=== PATIENT | male | born 1970 | race American Indian/Alaskan Native ===

== ENCOUNTER 2016-12-22 20:33 | Inpatient (IN) | payer MEDICARE ==
[2016-12-22] MEDS ORDERED: DULCOLAX PR PRN (20:44)
[2016-12-22] MEDS ORDERED: SENOKOT PO PRN (20:44)
[2016-12-22] MEDS: PERCOCET 5/325 PO PRN (21:43)
[2016-12-22] MEDS: COLACE PO SCH (21:45)
[2016-12-22] MEDS: LOVENOX SUB-Q SCH (21:45)
[2016-12-22] MEDS: REMERON PO SCH (22:29)
[2016-12-22] MEDS: SYMMETREL PO SCH (22:29)
[2016-12-22] MEDS: HABITROL TD SCH (22:31)
[2016-12-23 06:48] LABS: Basophils % (Auto) 0.7 % (0.0-1.8); Eosinophils % (Auto) 3.1 % (0.0-4.3); Hematocrit 36.3 % (35.5-45.6); Hemoglobin 12.2 gm/dl (11.8-15.2); Mean Corpuscular HGB Conc 34 % (32-34); Mean Corpuscular Hemoglobin 29 pg (28-32); Mean Corpuscular Volume 87 fl (84-94); Platelet Count 300 K/mm3 (140-440); Red Blood Count 4.18 M/mm3 (3.65-5.03); Red Cell Distribution Width 14.2 % (13.2-15.2); White Blood Count 8.5 K/mm3 (4.5-11.0)
[2016-12-23 07:00] LABS: Alanine Aminotransferase 91 units/L (7-56); Albumin 3.4 g/dL (3.9-5); Albumin/Globulin Ratio 0.8 %; Alkaline Phosphatase 147 units/L (35-129); Anion Gap 20 mmol/L; BUN/Creatinine Ratio 12.22; Blood Urea Nitrogen 11 mg/dL (9-20); Calcium 10.2 mg/dL (8.4-10.2); Carbon Dioxide 26 mmol/L (22-30); Chloride 94.6 mmol/L (98-107); Glucose 102 mg/dL (75-100); Potassium 4.5 mmol/L (3.6-5.0); Sodium 136 mmol/L (137-145); Total Protein 7.9 g/dL (6.3-8.2)
[2016-12-23] MEDS: MAGIC MOUTHWASH PO SCH ×3 (09:45→22:21)
[2016-12-23] MEDS: PROzac PO SCH (09:46)
[2016-12-23] MEDS: SYMMETREL PO SCH ×2 (09:46→22:22)
[2016-12-23] MEDS: COLACE PO SCH (09:53)
[2016-12-23] MEDS ORDERED: COLACE PO PRN (11:00)
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
[2016-12-23] MEDS: PERCOCET 5/325 PO PRN (15:25)
[2016-12-23] MEDS: LOVENOX SUB-Q SCH ×2 (17:10→22:23)
[2016-12-23] MEDS: REMERON PO SCH (22:22)
[2016-12-23] MEDS: HABITROL TD SCH (22:23)
[2016-12-24] MEDS: PERCOCET 5/325 PO PRN ×2 (04:01→10:05)
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
[2016-12-24] MEDS: SYMMETREL PO SCH ×2 (10:00→21:09)
[2016-12-24] MEDS: PROzac PO SCH (10:00)
[2016-12-24] MEDS: LOVENOX SUB-Q SCH ×2 (10:11→21:15)
[2016-12-24] MEDS: MAGIC MOUTHWASH PO SCH ×3 (14:27→20:00)
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
[2016-12-24] MEDS: ATIVAN PO PRN (21:08)
[2016-12-24] MEDS: TYLENOL PO PRN (21:09)
[2016-12-24] MEDS: REMERON PO SCH (21:09)
[2016-12-24] MEDS: HABITROL TD SCH (21:13)
[2016-12-24] MEDS: ALUM-MAG HYDROX-SIMETH 200-200-20MG/5ML PO PRN (23:52)
[2016-12-25] MEDS: TYLENOL PO PRN (05:15)
--- NOTE | 2016-12-25 08:54 | XRay Report ---
LUMBOSACRAL SPINE, 5 VIEWS History: Lower back pain. Findings: Limited exam. There is residual oral contrast in the colon which limits the lateral views. There is grossly normal height and alignment of lumbar vertebra. No compression deformity or subluxation is appreciated. No significant degenerative changes are appreciated. The oblique images demonstrate wide patency of the neural foramen bilaterally. No pars defect is identified. The sacrum and SI joints are unremarkable. Impression: Slightly limited views of the lumbar spine. No abnormality is detected.
[2016-12-25] MEDS: SYMMETREL PO SCH ×2 (09:22→21:40)
[2016-12-25] MEDS: MAGIC MOUTHWASH PO SCH ×3 (09:25→21:40)
[2016-12-25] MEDS: PROzac PO SCH (09:26)
[2016-12-25 11:28] LABS: Hematocrit 35.3 % (35.5-45.6); Hemoglobin 11.8 gm/dl (11.8-15.2); Mean Corpuscular HGB Conc 33 % (32-34); Mean Corpuscular Hemoglobin 29 pg (28-32); Mean Corpuscular Volume 88 fl (84-94); Platelet Count 288 K/mm3 (140-440); Red Blood Count 4.03 M/mm3 (3.65-5.03); Red Cell Distribution Width 13.7 % (13.2-15.2); White Blood Count 13.6 K/mm3 (4.5-11.0)
[2016-12-25 11:39] LABS: Anion Gap 22 mmol/L; Blood Urea Nitrogen 11 mg/dL (9-20); Carbon Dioxide 25 mmol/L (22-30); Chloride 90.9 mmol/L (98-107); Glucose 103 mg/dL (75-100); Potassium 4.4 mmol/L (3.6-5.0); Sodium 133 mmol/L (137-145)
[2016-12-25] MEDS: LOVENOX SUB-Q SCH ×2 (11:55→21:40)
[2016-12-25] MEDS: ATIVAN PO PRN ×2 (11:56→21:39)
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
[2016-12-25] MEDS ORDERED: VANCOMYCIN VIAL 1,750 MG in NACL 0.9% 500 ML 500 ML IV ONE (14:34)
[2016-12-25] MEDS ORDERED: NACL 0.9% 1000 ML IV ONE ×2 (14:34→19:00)
[2016-12-25] MEDS ORDERED: VANCOMYCIN PHARMACY TO DOSE IV SCH (15:00)
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
[2016-12-25] MEDS: VANCOMYCIN 1,500 MG in NACL 0.9% 500 ML 500 ML IV SCH (17:03)
[2016-12-25] MEDS: ULTRAM PO PRN (17:30)
[2016-12-25] MEDS: ALUM-MAG HYDROX-SIMETH 200-200-20MG/5ML PO PRN (17:30)
[2016-12-25] MEDS: PERCOCET 5/325 PO PRN (18:48)
[2016-12-25] MEDS: ZOSYN/NS 4.5GM/100ML 4.5 GM/100 ML VIAL IV SCH ×2 (18:53→23:08)
[2016-12-25] MEDS: LEVAQUIN 750MG/150ML 750 MG/150 ML BAG IV SCH (19:59)
[2016-12-25] MEDS: REMERON PO SCH (21:39)
[2016-12-25] MEDS: HABITROL TD SCH (21:41)
[2016-12-26] MEDS: VANCOMYCIN 1,500 MG in NACL 0.9% 500 ML 500 ML IV SCH ×2 (05:38→16:41)
[2016-12-26] MEDS: ZOSYN/NS 4.5GM/100ML 4.5 GM/100 ML VIAL IV SCH ×3 (07:00→18:58)
[2016-12-26 08:17] LABS: Basophils % (Auto) 0.3 % (0.0-1.8); Eosinophils % (Auto) 0.2 % (0.0-4.3); Hematocrit 31.3 % (35.5-45.6); Hemoglobin 10.5 gm/dl (11.8-15.2); Mean Corpuscular HGB Conc 34 % (32-34); Mean Corpuscular Hemoglobin 29 pg (28-32); Mean Corpuscular Volume 87 fl (84-94); Platelet Count 247 K/mm3 (140-440); Red Blood Count 3.59 M/mm3 (3.65-5.03); Red Cell Distribution Width 13.9 % (13.2-15.2); White Blood Count 14.4 K/mm3 (4.5-11.0)
[2016-12-26] MEDS: PROTONIX IV SCH (08:49)
[2016-12-26] MEDS: PROzac PO SCH (08:51)
[2016-12-26] MEDS: SYMMETREL PO SCH ×2 (08:52→21:47)
[2016-12-26] MEDS: MAGIC MOUTHWASH PO SCH ×2 (08:53→13:54)
[2016-12-26] MEDS: LOVENOX SUB-Q SCH (09:03)
[2016-12-26] MEDS ORDERED: LEVAQUIN 750MG/150ML 750 MG/150 ML BAG IV SCH ×2 (10:00)
[2016-12-26] MEDS: LEVAQUIN 750MG/150ML 750 MG/150 ML BAG IV SCH (10:15)
[2016-12-26] MEDS: ATIVAN PO PRN (11:04)
[2016-12-26] MEDS ORDERED: NACL 0.9% 1000 ML 1,000 ML IV SCH (16:00)
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
[2016-12-26] MEDS: PERCOCET 5/325 PO PRN (16:48)
[2016-12-26] MEDS: REMERON PO SCH (21:46)
[2016-12-27] MEDS ORDERED: NACL 0.9% 500 ML 500 ML IV SCH (04:00)
[2016-12-27] MEDS: HABITROL TD SCH (06:18)
[2016-12-27] MEDS: VANCOMYCIN 1,500 MG in NACL 0.9% 500 ML 500 ML IV SCH ×2 (06:19→16:42)
[2016-12-27] MEDS: SYMMETREL PO SCH ×2 (09:15→22:44)
[2016-12-27] MEDS: PROTONIX IV SCH (09:16)
[2016-12-27] MEDS: PROzac PO SCH (09:16)
[2016-12-27] MEDS: MAGIC MOUTHWASH PO SCH ×2 (09:29→13:04)
[2016-12-27] MEDS: LOVENOX SUB-Q SCH ×2 (09:30→22:00)
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
[2016-12-27] MEDS: LEVAQUIN 750MG/150ML 750 MG/150 ML BAG IV SCH (11:16)
[2016-12-27] MEDS: ZOSYN/NS 4.5GM/100ML 4.5 GM/100 ML VIAL IV SCH ×2 (13:05→18:26)
[2016-12-27] MEDS: ALUM-MAG HYDROX-SIMETH 200-200-20MG/5ML PO PRN (17:14)
[2016-12-27] MEDS: PERCOCET 5/325 PO PRN (17:14)
[2016-12-27] MEDS: REMERON PO SCH (22:44)
[2016-12-28] MEDS: ZOSYN/NS 4.5GM/100ML 4.5 GM/100 ML VIAL IV SCH ×6 (01:16→17:49)
[2016-12-28 05:05] LABS: Anion Gap 18 mmol/L; Blood Urea Nitrogen 7 mg/dL (9-20); Calcium 9.2 mg/dL (8.4-10.2); Carbon Dioxide 24 mmol/L (22-30); Chloride 100.3 mmol/L (98-107); Glucose 100 mg/dL (75-100); Potassium 3.6 mmol/L (3.6-5.0); Sodium 139 mmol/L (137-145)
[2016-12-28 05:06] LABS: Hematocrit 27.1 % (35.5-45.6); Hemoglobin 9.4 gm/dl (11.8-15.2); Mean Corpuscular HGB Conc 35 % (32-34); Mean Corpuscular Hemoglobin 30 pg (28-32); Mean Corpuscular Volume 88 fl (84-94); Platelet Count 230 K/mm3 (140-440); Red Cell Distribution Width 14.1 % (13.2-15.2); White Blood Count 6.4 K/mm3 (4.5-11.0)
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
[2016-12-28] MEDS: PROTONIX PO SCH (08:23)
[2016-12-28] MEDS: SYMMETREL PO SCH ×2 (08:23→22:07)
[2016-12-28] MEDS: PROzac PO SCH (08:23)
[2016-12-28] MEDS: MAGIC MOUTHWASH PO SCH ×4 (09:37→20:31)
[2016-12-28] MEDS: LEVAQUIN PO SCH (10:46)
[2016-12-28] MEDS: LOVENOX SUB-Q SCH ×2 (14:37→22:06)
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
[2016-12-28] MEDS: REMERON PO SCH (21:49)
[2016-12-28] MEDS: HABITROL TD SCH (22:09)
[2016-12-28] MEDS: ROBITUSSIN PO PRN (22:27)
[2016-12-29] MEDS: ZOSYN/NS 4.5GM/100ML 4.5 GM/100 ML VIAL IV SCH ×2 (00:35→06:13)
[2016-12-29] MEDS: PERCOCET 5/325 PO PRN (00:50)
[2016-12-29] MEDS: ATIVAN PO PRN (00:51)
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
[2016-12-29] MEDS: PROzac PO SCH (08:01)
[2016-12-29] MEDS: SYMMETREL PO SCH ×2 (08:01→21:41)
[2016-12-29] MEDS: MAGIC MOUTHWASH PO SCH ×3 (08:02→20:36)
[2016-12-29 08:53] LABS: Hematocrit 32.3 % (35.5-45.6); Hemoglobin 10.6 gm/dl (11.8-15.2); Mean Corpuscular HGB Conc 33 % (32-34); Mean Corpuscular Hemoglobin 29 pg (28-32); Mean Corpuscular Volume 88 fl (84-94); Platelet Count 271 K/mm3 (140-440); Red Blood Count 3.66 M/mm3 (3.65-5.03); Red Cell Distribution Width 14.1 % (13.2-15.2); White Blood Count 5.4 K/mm3 (4.5-11.0)
[2016-12-29 09:08] LABS: Anion Gap 15 mmol/L; BUN/Creatinine Ratio 7.77; Blood Urea Nitrogen 7 mg/dL (9-20); Calcium 9.4 mg/dL (8.4-10.2); Carbon Dioxide 29 mmol/L (22-30); Chloride 98.5 mmol/L (98-107); Glucose 100 mg/dL (75-100); Potassium 3.4 mmol/L (3.6-5.0); Sodium 139 mmol/L (137-145)
[2016-12-29] MEDS: PROTONIX PO SCH (09:25)
[2016-12-29] MEDS: LOVENOX SUB-Q SCH ×2 (09:25→21:38)
[2016-12-29] MEDS ORDERED: K-DUR PO ONE (10:00)
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
[2016-12-29] MEDS: LEVAQUIN PO SCH (11:31)
--- NOTE | 2016-12-29 16:22 | Fluoroscopy Report ---
MODIFIED BARIUM SWALLOW INDICATION: Pneumonia. COMPARISON: None similar. FINDINGS: Fluoroscopy provided by radiologist for speech therapist to assess the swallowing mechanism. Food items of various consistencies given. No aspiration noted. Mild cervical spine degenerative changes and posterior postsurgical changes. IMPRESSION: Successful modified barium swallow. Please refer to detailed report from speech pathologist. Thank you for the opportunity to participate in this patient's care.
[2016-12-29] MEDS: REMERON PO SCH (21:41)
[2016-12-29] MEDS: HABITROL TD SCH (21:41)
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
[2016-12-30] MEDS: PROTONIX PO SCH (09:08)
[2016-12-30] MEDS: LEVAQUIN PO SCH (09:08)
[2016-12-30] MEDS: SYMMETREL PO SCH ×2 (09:09→22:43)
[2016-12-30] MEDS: PROzac PO SCH (09:09)
[2016-12-30] MEDS: LOVENOX SUB-Q SCH ×3 (09:14→22:46)
[2016-12-30] MEDS: MAGIC MOUTHWASH PO SCH ×4 (09:14→23:17)
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
[2016-12-30] MEDS: ULTRAM PO PRN (13:44)
[2016-12-30] MEDS: ROBITUSSIN PO PRN (13:44)
[2016-12-30] MEDS: REMERON PO SCH (22:43)
[2016-12-30] MEDS: COLACE PO SCH (23:18)
[2016-12-30] MEDS: HABITROL TD SCH (23:20)
[2016-12-31] MEDS: HABITROL TD SCH ×2 (05:11→22:03)
[2016-12-31] MEDS: COLACE PO SCH ×2 (08:00→22:09)
[2016-12-31] MEDS: SYMMETREL PO SCH ×2 (09:21→22:02)
[2016-12-31] MEDS: PROTONIX PO SCH (09:22)
[2016-12-31] MEDS: LEVAQUIN PO SCH (09:22)
[2016-12-31] MEDS: MAGIC MOUTHWASH PO SCH ×3 (09:23→22:03)
[2016-12-31] MEDS: PROzac PO SCH (09:23)
[2016-12-31] MEDS: LOVENOX SUB-Q SCH ×2 (09:23→22:02)
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
[2016-12-31] MEDS: PERCOCET 5/325 PO PRN (13:26)
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
[2016-12-31] MEDS: LIORESAL PO SCH ×2 (14:59→22:01)
[2016-12-31] MEDS: REMERON PO SCH (22:02)
[2017-01-01] MEDS: PROzac PO SCH (10:31)
[2017-01-01] MEDS: LOVENOX SUB-Q SCH ×2 (10:31→21:34)
[2017-01-01] MEDS: SYMMETREL PO SCH ×2 (10:32→21:33)
[2017-01-01] MEDS: LIORESAL PO SCH ×3 (10:33→21:31)
[2017-01-01] MEDS: PROTONIX PO SCH (10:34)
[2017-01-01] MEDS: COLACE PO SCH ×2 (10:35→21:34)
[2017-01-01] MEDS: LEVAQUIN PO SCH (10:35)
[2017-01-01] MEDS: MAGIC MOUTHWASH PO SCH ×3 (10:42→21:31)
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
[2017-01-01] MEDS: K-DUR PO SCH ×2 (15:19→21:33)
[2017-01-01] MEDS: HABITROL TD SCH (21:33)
[2017-01-01] MEDS: REMERON PO SCH (21:33)
[2017-01-02] MEDS: MAGIC MOUTHWASH PO SCH ×3 (09:51→22:08)
[2017-01-02] MEDS: SYMMETREL PO SCH ×2 (09:52→22:11)
[2017-01-02] MEDS: K-DUR PO SCH ×2 (09:52→22:11)
[2017-01-02] MEDS: LIORESAL PO SCH ×3 (09:52→20:00)
[2017-01-02] MEDS: PROTONIX PO SCH (09:53)
[2017-01-02] MEDS: LEVAQUIN PO SCH (09:53)
[2017-01-02] MEDS: COLACE PO SCH ×2 (09:54→22:10)
[2017-01-02] MEDS: LOVENOX SUB-Q SCH ×2 (10:00→22:16)
[2017-01-02] MEDS: PERCOCET 5/325 PO PRN (10:00)
[2017-01-02] MEDS: PROzac PO SCH (10:02)
[2017-01-02] MEDS: REMERON PO SCH (22:12)
[2017-01-02] MEDS: HABITROL TD SCH (22:16)
[2017-01-03] MEDS: SYMMETREL PO SCH ×2 (09:13→21:20)
[2017-01-03] MEDS: LIORESAL PO SCH ×3 (09:13→21:19)
[2017-01-03] MEDS: K-DUR PO SCH (09:14)
[2017-01-03] MEDS: PROTONIX PO SCH (09:14)
[2017-01-03] MEDS: PROzac PO SCH (09:15)
[2017-01-03] MEDS: MAGIC MOUTHWASH PO SCH ×3 (09:15→21:00)
[2017-01-03] MEDS: LOVENOX SUB-Q SCH ×2 (09:22→21:20)
[2017-01-03] MEDS: LEVAQUIN PO SCH (09:22)
[2017-01-03] MEDS: COLACE PO SCH ×2 (11:25→21:21)
[2017-01-03] MEDS: REMERON PO SCH (21:20)
[2017-01-03] MEDS: HABITROL TD SCH (21:21)
[2017-01-04 08:03] VITALS: BP 133/78
[2017-01-04] MEDS: COLACE PO SCH ×2 (09:31→09:43)
[2017-01-04] MEDS: LEVAQUIN PO SCH (09:31)
[2017-01-04] MEDS: LIORESAL PO SCH (09:32)
[2017-01-04] MEDS: PROTONIX PO SCH (09:32)
[2017-01-04] MEDS: PROzac PO SCH (09:34)
[2017-01-04] MEDS: SYMMETREL PO SCH (09:34)
[2017-01-04] MEDS: MAGIC MOUTHWASH PO SCH (09:37)
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
[2017-01-04] MEDS: LOVENOX SUB-Q SCH (12:30)
== END 2017-01-04 13:35 | disposition home or self-care (01) | DRG 963 ==
LOC: 3B 20:33
PROVIDERS: ADMIT Family Medicine; ATTEND Family Medicine
DX: S06.6X0A Traumatic subarachnoid hemorrhage without loss of consciousness, initial encounter (principal); A41.51 Sepsis due to Escherichia coli [E. coli]; S14.129A Central cord syndrome at unspecified level of cervical spinal cord, initial encounter; J18.1 Lobar pneumonia, unspecified organism; E87.1 Hypo-osmolality and hyponatremia; S06.890A Other specified intracranial injury without loss of consciousness, initial encounter; R13.12 Dysphagia, oropharyngeal phase; S02.2XXA Fracture of nasal bones, initial encounter for closed fracture; E87.6 Hypokalemia; S83.412A Sprain of medial collateral ligament of left knee, initial encounter; F17.200 Nicotine dependence, unspecified, uncomplicated; S06.2X0A Diffuse traumatic brain injury without loss of consciousness, initial encounter; S42.111A Displaced fracture of body of scapula, right shoulder, initial encounter for closed fracture; F10.20 Alcohol dependence, uncomplicated; V89.2XXA Person injured in unspecified motor-vehicle accident, traffic, initial encounter; Y93.89 Activity, other specified; Y92.89 Other specified places as the place of occurrence of the external cause; Y99.8 Other external cause status
CPT/HCPCS: 36415; 71010; 71020; 72110; 74230; 80048; 80053; 82140; 82962; 84132; 85025; 85027; 87040; 87045; 87076; 87086; 87186; 87493; C9113; J1650; J1956; J2543; J3370; J7030; J7040